=== PATIENT | male | born 2000 | race Caucasian/White ===

== ENCOUNTER 2021-08-17 13:05 | Emergency (ER) | payer BC, SELFPAY ==
[2021-08-17 13:16] VITALS: BP 107/67; PULSE 66; RESP 18; TEMP 37.3; O2SAT 99
--- NOTE | 2021-08-17 13:28 | W.ED.GENAD ---
Discharge Plan Disposition Patient Disposition: HOME Condition: Good Discharge Details Clinical Impression: Sinusitis Primary Care Provider: Myra,[facility] ED Provider: Breanna Palomares Home Meds and New Rx's Prescriptions: New amoxicillin 875 mg tablet 875 mg PO BID Qty: 20 0RF Discharge Instructions Instructions: Sinusitis (ED) Additional Instructions: Take Claritin daily Take amoxicillin as prescribed Take Motrin and Tylenol for discomfort Return earlier should you have new or worsening complaints Acquire PCP Discharge Data Discharge Date/Time-TO BE ENTERED AT DEPARTURE: 08/17/21 14:56 Medical Decision Making labs do not show evidence of acute abnormality Denies risk of carbon monoxide exposure Appears well, he is symptomatically improved after migraine cocktail His CT shows evidence of sinusitis He was treated with amoxicillin twice daily for 10 days He was referred to ENT He is also instructed to take Claritin daily Return precautions discussed and patient expressed understanding Medical Records Medical records reviewed: Yes I reviewed the patient's medical records. Lab Data Lab results reviewed: Yes I reviewed the patient's lab results. HPI General Date/Time Provider Initiated Documentation: 08/17/21 13:13. HPI Narrative: This 21-year-old male presents with headache ongoing for the past few weeks. Denies any head injury or history of headaches in the past. Denies any fever or chills. Denies any nausea or vomiting. Experiencing photophobia without phonophobia. Denies any strength or sensation change. Denies any rashes or lesions. Denies any speech or sensation change. Denies any illicit drug use. Related Data Home Medications Medication Instructions Recorded Confirmed amoxicillin 875 mg tablet 875 mg PO BID #20 tab 08/17/21 Previous Rx's Medication Instructions Recorded amoxicillin 875 mg tablet 875 mg PO BID #20 tab 08/17/21 Allergies Allergy/AdvReac Type Severity Reaction Status Date / Time No Known Allergies Allergy Unverified 08/17/21 13:21 General Stated Complaint: Headache PARVEZ: 4 Review of Systems All systems reviewed & are unremarkable except as noted in HPI and below PFSH All Active Problems (Updated 08/17/21 @ 14:28 by EMERALD Lindo) Sinusitis (Acute) Social History Smoking/Tobacco Use Status: Never Smoking risk assessment performed?: Yes Alcohol Intake: current Alcohol Intake frequency: a few times a month Substance use type: does not use Do you feel safe at home: Yes Do you feel safe in your relationship?: Yes Exam Const General: cooperative, comfortable and no acute distress HENMT Head: normal to inspection Mouth: oral mucosae normal Eyes Pupils: PERRL Neck Other: No meningismus Resp Effort & Inspection: normal respiratory effort Auscultation: clear to auscultation bilaterally Cardio Rate: regular rate Rhythm: regular rhythm Neuro General: patient alert, patient oriented x3 and CN's II-XI intact bilaterally Cranial Nerves: tongue midline Cognition: normal cognition Speech: speech normal Gait: normal gait Course Vital Signs Vital signs: Vital Signs Temperature 37.3 C 08/17/21 13:16 Pulse 66 08/17/21 13:16 Respiratory Rate 18 08/17/21 13:16 Blood Pressure 107/67 08/17/21 13:16 Pulse Oximetry 99 08/17/21 13:16 Temperature 37.3 C 08/17/21 13:16 Temperature Source Tympanic 08/17/21 13:16 Pulse 66 08/17/21 13:16 Respiratory Rate 18 08/17/21 13:16 Respiratory Effort 08/17/21 13:19 Blood Pressure 107/67 08/17/21 13:16 Blood Pressure Position Sitting 08/17/21 13:16 Pulse Oximetry 99 08/17/21 13:16 Oxygen Delivery Method Room Air 08/17/21 13:16 Oxygen Flow Rate 0 08/17/21 13:16 Pain Level 3 08/17/21 13:16
--- NOTE | 2021-08-17 13:35 | DI.CT_ITS ---
Exam(s) CT HEAD WO EXAM: CT HEAD WO CLINICAL HISTORY: new onset headache. TECHNIQUE: Imaging Protocol: Axial computed tomography images with coronal and sagittal reformatted images were created and reviewed COMPARISON: No exams were available for comparison FINDINGS: There are no skull fractures. There is complete opacification of the right sphenoid sinus and mucos al thickening noted in the left sphenoid sinus. Posterior right-sided ethmoidal air cells are partia lly opacified. Visualized maxillary sinuses are clear as are the frontal sinuses. Mastoid air cells appear clear. There is no evidence of intracranial hemorrhage, mass effect, or shift of midline structures. There are no extra-axial fluid collections. The ventricles are not enlarged or shifted and there is no blo od within the ventricular system nor within the basal cisterns. IMPRESSION: No acute intracranial findings on this noninfused CT scan of the brain. However, there is significant paranasal sinus disease affecting the sphenoid sinuses as described abo ve. RADIATION DOSE DELIVERED: 759.36mGy.cm Total DLP DATA REPOSITORY: All CT scans at this facility are submitted to the National Radiology Data Registry (NRDR) Dose Index Registry (DIR) with the [employer] ([employer]). RADIATION OPTIMIZATION: All CT scans at this facility use at least one of these dose optimization te chniques: automated exposure control; mA and/or kV adjustment per patient size (includes targeted exa ms where dose is matched to clinical indication); or iterative reconstruction.
[2021-08-17 13:48] LABS: Abs Immature Grans 0.05 10^3/uL (0.0-0.06); Absolute Basophil Count 0.05 10^3/uL (0.0-0.2); Absolute Eosinophil Count 0.13 10^3/uL (0.0-0.7); Absolute Lymphocyte Count 1.59 10^3/uL (1.2-3.4); Absolute Monocyte Count 0.79 10^3/uL (0.1-0.8); Absolute Neutrophil Count 10.82 10^3/uL (1.2-6.7); Basophils % 0.4; HCT 45.5 % (40.0-50.0); HGB 15.2 g/dL (13.5-17.5); Immature Grans % 0.4; Lymphocytes % 11.8; MCH 29.1 pg (27.0-33.0); MCHC 33.4 % (32.0-36.0); MCV 87.2 fL (80-95); Monocytes % 5.9; Neutrophils % 80.5; Nucleated RBC 0 %; Platelet Count 332 10^3/uL (130-400); RBC 5.22 10^6/uL (4.36-5.78); RDW 12.7 % (11.8-14.1); RDW-SD 40.6 fL; WBC 13.44 10^3/uL (4.4-10.8)
[2021-08-17] MEDS: Prochlorperazine 10 MG/2 ML VIAL IVP (13:53)
[2021-08-17] MEDS: Normal Saline 1,000 ML 1000 ML IV (13:53)
[2021-08-17 14:02] LABS: ALT 16 U/L (16-63); AST 12 U/L (15-37); Albumin 4.3 g/dL (3.4-5.0); Alkaline Phosphatase 85 U/L (46-116); Anion Gap 9.3 mmol/L (3-11); BUN 17 mg/dL (7-18); Bilirubin, Total 0.6 mg/dL (0.2-1.0); CO2 27.7 mmol/L (21.0-32.0); CREATININE 1.3 mg/dL (0.70-1.30); Calcium 9.5 mg/dL (8.5-10.1); Chloride 102 mmol/L (98-107); Glucose 92 mg/dL (74-106); Potassium 4.4 mmol/L (3.5-5.1); Sodium 139 mmol/L (136-145); Total Protein 8.5 g/dL (6.4-8.2)
[2021-08-17 14:56] VITALS: BP 113/71; PULSE 66; RESP 17; TEMP 36.7; O2SAT 98
== END 2021-08-17 14:56 | disposition home or self-care (01) ==
LOC: ER 14:46
PROVIDERS: Emergency Provider Physician Assistant
DX: J01.90 Acute sinusitis, unspecified (principal); R51.9 Headache, unspecified
CPT/HCPCS: 36415; 80053; 96361; 96374; 99284; 70450; 85025; J0780